=== PATIENT | male | born 1985 ===

== ENCOUNTER 2023-09-18 10:12 | Outpatient (RCR) | payer OTHER, SELFPAY ==
--- NOTE | 2023-09-18 13:38 | PTOPEVDC ---
Assessment and note entered by Earnest Ventura, PT Thank you for referring Waldo Ruiz to [facility].? An evaluation has been completed. No further treatment is needed. Evaluation Information Assessment Status Evaluation Diagnosis Phantom leg pain Onset 1999 Subjective Information Reports that he has been on gabapentin for years but is no longer able to take it. 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 Reports that the pain he is getting is electrical in nature. Pain is all in the toes and feels like a stinging sensation. Pain is worst at night time. He is losing sleep. He is R handed. Some days are worse than others. Reported Pain Level Pain Score 6: Self Report Assessment PT Clinical Summary Patient was extensively educated in active motion and mental imagery to integrate amputated neural activity to integrate pain relief. Patient appeared receptive but discussed that perceived motion has made him more painful in the past. Willing to work on sensory integration and understands the goal. Being that it is an amputation greater than 20 years it may be difficult to integrate perceived muscle activation . Due to patient's incarceration status we will not be able to integrate mirror technique in living quarters and will rely on mental visualization. Patient will be discharged with knowledge to integrate into home activity. Plan of Care Other Interventions Home exercise program PT Services Indicated No Treatment Frequency and Evaluation and implementation of HEP Duration
== END 2023-09-18 13:49 | disposition home or self-care (01) ==
LOC: ANHPT 10:12
DX: G54.6 Phantom limb syndrome with pain (principal)
CPT/HCPCS: 97112; 97161